=== PATIENT | female | born 1950 | race Caucasian/White ===

== ENCOUNTER 2017-12-08 05:00 | Day surgery (SDC) | payer MEDICARE, OTHER ==
[2017-12-07 11:25] LABS: HEMATOCRIT 42.6 % (36.0-48.0); HEMOGLOBIN 14.4 g/dL (12-16); MCH 29.3 pg (26.0-34.0); MCHC 33.8 g/dL (31.0-37.0); MCV 86.6 fL (80.0-100.0); MEAN PLATELET VOLUME 9.7 fL (7.4-10.4); RBC 4.92 10x6/uL (4.00-5.40); RDW 14.5 % (11.5-14.5); WBC 6.3 10x3/uL (4.8-10.8)
[~2017-12-08] VITALS: Ht 167.6 cm; Wt 92.5 kg
--- NOTE | ~2017-12-08 | OP ---
PATIENT NAME: SHANTELL GAR MEDICAL RECORD: [id number] :52 [facility] DATE: SURGEON: GUERRERO CARRASCO DPM DATE OF OPERATION: 12/08/2017 PREOPERATIVE DIAGNOSES: Right ankle synovitis, arthritis and spurring of the distal tibia. POSTOPERATIVE DIAGNOSES: Right ankle synovitis, arthritis and spurring of the distal tibia. PROCEDURES: 1. Right ankle arthroscopy with extensive debridement. 2. Arthrotomy, right ankle with removal of the distal anterior tibial spurring. ANESTHESIA: General with local infiltrate utilizing lidocaine and Marcaine plain infiltrated around the anterior ankle as well as inside the ankle joint, 80 cc total. HEMOSTASIS: Right thigh tourniquet at 350 mmHg. PREOPERATIVE DETAILS: The patient was taken to the OR and placed on the operating table in the supine position followed by induction of general anesthesia and the infiltration of local anesthetic. The right extremity was then prepped and draped in usual aseptic technique followed by exsanguination and inflation of tourniquet. A 15-blade was used to create 2 small stab incisions over the lateral and anterior medial shoulder. The camera was then introduced into the medial portal after blunt dissection down to the joint capsule. Initial evaluation showed extensive capsulitis and synovitis of the ankle joint as well as a significant spurring on the anterior distal tibia across the entire from the joint. There was also some spurring noted on the anterior medial shoulder of the talus. The synovial shaver was then introduced into the lateral portal and debridement of the extensive capsulitis and synovitis was performed. The ports were switched. The camera introduced laterally and the synovial shaver medially and continued extensive debridement was performed with the camera in the lateral portal, the ATF ligament was visualized and there was noted to be some longitudinal tears of the ATF ligament. There was noted to be negative inversion stress exam as well as a negative anterior drawer exam. Following the extensive debridement with the synovial shaver in the medial portal, the ankle arthroscopy was concluded. PROCEDURE #2: Arthrotomy, right ankle with removal of distal anterior tibial spurring. The medial shoulder stab incision was lengthened proximally and distally approximately 4 cm. Dissection was carried down through the subcutaneous tissue being sure to avoid vital structures down to the joint capsule, which was incised sharply giving access to the ankle joint. At this time, visualization of the spur was achieved, osteotome mallet was used to remove the spurring along the entire anterior aspect of the tibia and a rasp was used to smooth the area. Wound was flushed. Excellent range of motion was noted. There was some spurring on the anterior medial shoulder area of the talus as well, which was removed with a rongeur and smoothed with a bone rasp. The wound was flushed. The joint capsule was repaired with 2-0 Vicryl, the subcutaneous tissue with 4-0 Rapide and the skin was closed with 4-0 Rapide in a subcuticular technique, followed by Dermabond. The lateral stab incision was OPERATIVE REPORT [id number] SHANTELL GAR also closed in a simple interrupted technique with 4-0 Rapide, followed by Dermabond, Adaptic, 4 x 4, and Conform were used to dress the wound followed by a Coban. Tourniquet was deflated. POSTOPERATIVE DETAILS: The patient tolerated the procedure well and left the OR with vital signs stable and vascular status at preoperative levels. The patient was transferred to recovery per anesthesia in stable condition. TRANSINT:[id number] Voice Confirmation ID: [id number] DOCUMENT ID: [id number] GUERRERO CARRASCO DPM at 1025 CC: [id number] DICTATION DATE: 12/08/17811 REHAB ASSISTANT: 12/08/17924 [facility] 12/08/17 [facility] [address] [place] [address]
[~2017-12-08 05:00] MED LIST: ALLEGRA-D1 TAB.SR1 PO; BAYER CHEWABLE81 MG PO; CALCIUM 600 +1 EAC3 PO; FISH OIL 1,0001 CA1 PO; GLUCOPHAGE500 MG PO; HYDROCODON-ACE1 EAC7 PO; LIPITOR10 MG PO; NORVASC5 MG PO; PLENDIL5 MG PO; SINGULAIR10 MG PO; VOLTAREN75 MG PO; ZANTAC150 MG PO
[2017-12-08 05:45] VITALS: BP 139/76; Ht 167.6 cm; Wt 92.5 kg
== END 2017-12-08 10:10 | disposition home or self-care (01) ==
LOC: D.OPS 05:00 → D.PAN 07:00 → D.OPS 07:00
PROVIDERS: Anesthesiology
DX: M65.871 Other synovitis and tenosynovitis, right ankle and foot (principal); M13.871 Other specified arthritis, right ankle and foot; M77.51 Other enthesopathy of right foot and ankle; Z01.812 Encounter for preprocedural laboratory examination